=== PATIENT | male | born 1945 | race Caucasian/White ===

== ENCOUNTER 2024-07-25 22:37 | Emergency (ER) | payer MEDICARE, MEDICAID ==
[~2024-07-25] VITALS: Ht 195.6 cm; Wt 82.0 kg
[2024-07-25 22:38] VITALS: TEMP 97.9; O2SAT 99
[2024-07-25] MEDS: KETOROLAC 30MG/ML VIAL IM ONE (23:15)
[2024-07-25] MEDS: ACETAMINOPHEN 500MG TABLET PO ONE (23:15)
[2024-07-26 01:33] LABS: HEMATOCRIT 45.2 % (42.0-52.0); HEMOGLOBIN 14.7 g/dL (14.0-18.0); MEAN CORPUSCULAR HEMOGLOBIN 30.4 pg (28.0-32.0); MEAN CORPUSCULAR HGB CONC 32.6 g/dL (31.0-37.0); MEAN CORPUSCULAR VOLUME 93.2 fL (80.0-94.0); PLATELET 227 x1000/uL (130-400); RED BLOOD CELL COUNT 4.85 mill/uL (4.7-6.1); RED CELL DISTRIBUTION WIDTH 14.8 % (11.6-14.6); WHITE BLOOD COUNT 5.9 x1000/uL (4.5-11.0)
[2024-07-26 02:13] LABS: POTASSIUM 3.7 mEq/L (3.5-5.1)
[2024-07-26 02:14] LABS: CALCIUM 9.6 mg/dL (8.7-10.4)
[2024-07-26 02:19] LABS: CREATININE 1.3 mg/dL (0.6-1.3)
[2024-07-26] MEDS ORDERED: IBUP-2029 MT (02:28)
[2024-07-26 06:19] VITALS: BP 138/88; PULSE 67; RESP 18; O2SAT 100
== END 2024-07-26 06:20 | disposition home or self-care (01) ==
LOC: ER 22:37
DX: M79.10 Myalgia, unspecified site (principal); J45.909 Unspecified asthma, uncomplicated; I10 Essential (primary) hypertension; E11.9 Type 2 diabetes mellitus without complications; Z86.73 Personal history of transient ischemic attack (TIA), and cerebral infarction without residual deficits
CPT/HCPCS: 99285; 36415; 96372; 80048; 82550; 85027; J1885; 99283